=== PATIENT | female | born 1990 | race Caucasian/White ===

== ENCOUNTER 2018-01-17 22:41 | Emergency (ER) | payer MEDICAID, OTHER ==
[2018-01-17 22:55] VITALS: BP 137/77; PULSE 98; RESP 18; TEMP 98.5; O2SAT 100
--- NOTE | 2018-01-17 23:57 | ED PDOC ---
Upper Extremity Pain/Injury Time Seen by Provider: 01/17/18 23:09 Chief Complaint (Nursing): Weakness/Neurological Deficit History Per: Patient History/Exam Limitations: no limitations Onset/Duration Of Symptoms: Other (x 4 months) Current Symptoms Are (Timing): Still Present Additional Complaint(s): 27-year-old female presents to ED complaining of numbness/tingling in both her hands intermittently for 4 months. Feels pins and needles/pressure feeling in both hands. Denies any weakness or pain. 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 Denies any other complaints at this time. PMD: No Family Provider Past Medical History Reviewed: Historical Data, Nursing Documentation, Vital Signs Vital Signs: Last Vital Signs Temp 98.5 F 01/17/18 22:51 Pulse 98 H 01/17/18 22:51 Resp 18 01/17/18 22:51 BP 137/77 01/17/18 22:51 Pulse Ox 100 01/17/18 22:51 - Medical History PMH: No Chronic Diseases - Surgical History Surgical History: No Surg Hx - Family History Family History: States: Unknown Family Hx - Home Medications Home Medications: Ambulatory Orders Medication Instructions Recorded Ibuprofen [Motrin] 600 mg PO Q8 #30 tab 07/24/15 - Allergies Allergies/Adverse Reactions: Allergies Allergy/AdvReac Type Severity Reaction Status Date / Time No Known Allergies Allergy Verified 07/24/15 10:47 Review of Systems ROS Statement: Except As Marked, All Systems Reviewed And Found Negative Neurological: Positive for: Other (intermittent numbness/tingling in both her hands) Physical Exam - Reviewed Nursing Documentation Reviewed: Yes Vital Signs Reviewed: Yes - Physical Exam Appears: Positive for: Well, No Acute Distress Head Exam: Positive for: ATRAUMATIC, NORMAL INSPECTION, NORMOCEPHALIC Skin: Positive for: Normal Color, Warm Eye Exam: Positive for: EOMI, PERRL Cardiovascular/Chest: Positive for: Regular Rate, Rhythm Respiratory: Negative for: Respiratory Distress Extremity: Positive for: Normal ROM, Capillary Refill (less than 2 seconds), Other (Motor Sensory Exam: Sensory: no deficits, motor: no deficits, moving with normal ROM; tendon is normal). Negative for: Deformity Neurologic/Psych: Positive for: Alert, Oriented - ECG O2 Sat by Pulse Oximetry: 100 (RA) Pulse Ox Interpretation: Normal Medical Decision Making Medical Decision Making: Impression(s): Bilateral paresthesias and pain; Bilateral carpal tunnel syndrome from occupation Volar splint applied. Upon provider evaluation patient is medically stable, and requires no further treatment in the ED at this time. Patient will be discharged. Counseling was provided and all questions were answered regarding diagnosis and need for follow up with PMD within 2-3 days. There is agreement to discharge plan. Return if symptoms persist or worsen. Scribe Attestation: Documented by Zeeshan Cox, acting as a scribe for Raudel Hamilton MD. Provider Scribe Attestation: All medical record entries made by the Scribe were at my direction and personally dictated by me. I have reviewed the chart and agree that the record accurately reflects my personal performance of the history, physical exam, medical decision making, and the department course for this patient. I have also personally directed, reviewed, and agree with the discharge instructions and disposition. Disposition - Clinical Impression Clinical Impression: Paresthesia and pain of both upper extremities - Patient ED Disposition Is Patient to be Admitted: No Counseled Patient/Family Regarding: Studies Performed, Diagnosis, Need For Followup - Disposition Referrals: Benitez Lucero MD [Staff Provider] - Disposition: Routine/Home Disposition Time: 00:37 Condition: GOOD Additional Instructions: Take motrin for pain. Follow up with your PCP in 2-3 days. Wear brace at all times. Instructions: Carpal Tunnel Syndrome
== END 2018-01-18 00:43 | disposition home or self-care (01) ==
LOC: H.ER 22:41
DX: R20.2 Paresthesia of skin (principal); G56.03 Carpal tunnel syndrome, bilateral upper limbs